=== PATIENT | male | born 1995 | race Caucasian/White ===

== ENCOUNTER 2023-09-18 19:15 | Emergency (ER) | payer BC ==
[2023-09-18] MEDS ORDERED: Pantoprazole 40 MG VIAL ONE (19:39)
[2023-09-18] MEDS ORDERED: Mag-Al Plus 1200 MG/1200 MG/120 MG/30 ML UDCUP PO SCH (20:00)
[2023-09-18] MEDS ORDERED: Lidocaine Viscous Sol 2% 15 ml UD Cup SSW SCH (20:00)
== END 2023-09-18 20:44 | disposition home or self-care (01) ==
LOC: NAV ERS 19:15
DX: K29.00 Acute gastritis without bleeding (principal); F17.210 Nicotine dependence, cigarettes, uncomplicated
CPT/HCPCS: 99283; C9113